=== PATIENT | male | born 1990 | race Two or more races ===

== ENCOUNTER 2021-10-12 18:03 | Emergency (ER) | payer OTHER, SELFPAY ==
--- NOTE | 2021-10-12 18:10 | ED.URI ---
HPI - URI/Sore Throat General Chief Complaint: Upper Respiratory Infection Stated Complaint: sob and can't get enough air Time Seen by Provider: 10/12/21 18:20 Source: patient and RN notes reviewed Mode of arrival: ambulatory Limitations: no limitations History of Present Illness HPI Narrative: 31-year-old male presents with concern for not getting enough oxygen . Report since yesterday he has had feelings of shortness of breath with lightheadedness. He denies cough, nasal congestion, sore throat, headache, body aches, chills, fever. Reports chronic rhinorrhea. Reports he took one dose of Benadryl with no relief. Reports symptoms are worse at work, eases when he rests. 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 Reports he was tested for Covid today and was negative. Denies any history of asthma, breathing problems. Reports he vapes. Denies vaping exacerbates his symptoms. Related Data Home Medications Medication Instructions Recorded Confirmed No Home Medications 10/12/21 10/12/21 Allergies Allergy/AdvReac Type Severity Reaction Status Date / Time mold Allergy Mild Sneezing Verified 10/12/21 18:21 pollen extracts Allergy Mild Sneezing Verified 10/12/21 18:21 Review of Systems Review of Systems: CONSTITUTIONAL: Denies malaise, chills, sweats, or fever. EYES: Denies visual changes, redness, or discharge. ENT: Reports rhinorrhea denies congestion, sinus pain, otalgia and sore throat. CARDIOVASCULAR: Denies chest pain, palpitations, or edema. RESPIRATORY: Denies cough. Reports dyspnea. GASTROINTESTINAL: Denies abdominal pain, nausea, vomiting, diarrhea SKIN: Denies rash or itching. MUSCULOSKELETAL: Denies myalgia. NEUROLOGIC: Denies headache. All systems reviewed & are unremarkable except as noted in HPI and below PMFSH Comments At time of signature, agree with nursing past medical, surgical, social and family history. There is no relevant family history pertinent to the presenting complaint Exam Narrative: GENERAL: Well-appearing, well-nourished, and in no acute distress. HEAD: Normocephalic, atraumatic. EYES: PERRLA, sclera clear, and EOMI. No nystagmus. ENT: Nares clear, postnasal drainage. Mucous membranes moist. TM pearly zamarripa with sharp light reflex bilaterally; no tragal tenderness. Oropharynx without erythema or lesions. Tonsils not enlarged and without exudate. NECK: Supple. No lymphadenopathy. No jugular venous distension, thyromegaly, or carotid bruits. Carotids were easily palpable bilaterally. CHEST: No respiratory distress. Clear to auscultation. No bony deformities, no asymmetry. Speaks in full sentences. HEART: Regular rate and rhythm. No murmur heard. Normal peripheral pulses. No cyanosis SKIN: Warm, dry, no visible rash. NEURO: Alert and oriented x3. PSYCH: Normal mood and flat affect Course Course Emergency Course: Patient is aware of diagnosis, understands and agrees to treatment plan. Anticipatory guidance given. Patient agrees to follow-up as directed and is aware of reasons to seek care at the emergency department. Portions of this record may have been created with voice recognition software Vital Signs Vital signs: Reviewed. MDM - URI/Sore Throat MDM Narrative Medical decision making narrative: Differential diagnosis considered: [place] virus, strep pharyngitis, allergic rhinitis, upper respiratory tract infection, sinusitis, rhinosinusitis, nasopharyngitis. viral pharyngitis, otitis media, otitis externa, pneumonia, bronchitis, viral cough syndrome, viral syndrome, and influenza. Exam findings show no acute concerns or changes; patient is non-toxic appearing and is in no distress. Patient is appropriate for outpatient treatment and follow-up. Critical Care Time Critical Care Time Critical Care Time: No Discharge Plan Discharge Clinical Impression: Physically well but worried Patient Disposition: Home, Self-Care Condition: Stable Instructions: General Patient Instructions Addit
[2021-10-12 18:11] VITALS: BP 134/86; PULSE 70; RESP 16; TEMP 36.4; O2SAT 100
== END 2021-10-12 18:35 | disposition home or self-care (01) ==
PROVIDERS: Emergency Provider Nurse Practitioner
DX: Z71.1 Person with feared health complaint in whom no diagnosis is made (principal)
CPT/HCPCS: 99211; G0463

== ENCOUNTER 2021-11-14 18:04 | Emergency (ER) | payer OTHER, SELFPAY ==
[2021-11-14 18:11] VITALS: BP 136/86; PULSE 84; RESP 16; TEMP 37.1; O2SAT 100
--- NOTE | 2021-11-14 19:01 | ED.URI ---
HPI - URI/Sore Throat General Chief Complaint: Upper Respiratory Infection Stated Complaint: Ear Pain/Sore Throat Source: patient and RN notes reviewed Limitations: no limitations History of Present Illness HPI Narrative: The vaccinated patient, who is a vaper/nondrinker, presents with 2-day history of scratchy sore throat and some anterior lymph node swelling and subjective fever 100.4. No earache, cough; no loss of taste/smell, CP, vomiting/diarrhea, S OB. Symptoms are mild worse eating Related Data Allergies Allergy/AdvReac Type Severity Reaction Status Date / Time mold Allergy Mild Sneezing Verified 11/14/21 18:17 pollen extracts Allergy Mild Sneezing Verified 11/14/21 18:17 Review of Systems Review of Systems: General/Constitutional: No weight loss,POSSIBLE fever Eyes: N0: Redness,discharge Ears/Nose/Throat: No: Epistaxis,ear discharge Respiratory: Denies: Hemoptysis Gastrointestinal: No Vomiting, Bleeding-rectal Skin: No Lumps, eruption Neurologic: No Focal Weakness,Sz Hematologic: Denies: Petechiae/Purpura Psychiatric: No: Suicida ideationl All Other Systems: Reviewed and Negative PMFSH Comments At time of signature, agree with nursing past medical, surgical, social and family history. There is no relevant family history pertinent to the presenting complaint Exam Narrative: General Appearance: Well appearing, Well nourished EYE: PERRLA, Conjunctiva clear Ears: Auditory canal normal, TM normal Nose: Rhinorrhea, Mucousal erythema Mouth/Throat: MM moist, Uvula midline, Pharyngeal erythema without exudate Neck: Supple,++ adenopathy Respiratory: No respiratory distress, Breath sounds equal, Clear to auscultation Cardiovascular: RRR, No JVD Musculoskeletal: Non tender, Normal strength Skin: Warm, Dry Neurological: A&O x3, CN II-XII intact Psychiatric: Normal mood, Normal affect Course Vital Signs Vital signs: Vital Signs Temperature 98.8 F 11/14/21 18:11 Pulse Rate 84 11/14/21 18:11 Respiratory Rate 16 11/14/21 18:11 Blood Pressure 136/86 11/14/21 18:11 Pulse Oximetry 100 11/14/21 18:11 Temperature 98.8 F 11/14/21 18:11 Pulse Rate 84 11/14/21 18:11 Respiratory Rate 16 11/14/21 18:11 Blood Pressure 136/86 11/14/21 18:11 Pulse Oximetry 100 11/14/21 18:11 MDM - URI/Sore Throat Lab Data Labs: Strep Screen Presumptive Negative *(Reference Range: Negative)* Discharge Plan Discharge Clinical Impression: Tonsil pain Patient Disposition: Home, Self-Care Condition: Stable Instructions: Antibiotic Form, Pharyngitis (ED) Prescriptions: New benzonatate 100 mg capsule 100 mg PO TID PRN (Reason: cough) Qty: 20 RF: 2 lidocaine HCl [Lidocaine Viscous] 2 % solution 5 ml MUCOUS MEM QID PRN (Reason: pain) Qty: 100 RF: 0 azithromycin 250 mg tablet See Rx Instructions .ROUTE .COMPLEX Qty: 6 RF: 0 azelastine 137 mcg (0.1 %) aerosol,spray 137 mcg NASAL Q12H Qty: 30 RF: 0 Other Ambulatory Orders: SARS-CoV-2 RNA, Qual RT-PCR (Routine) Location: Determined by Patient Ordered By: Nikita Walden Follow-up/Referrals: PHYSICIAN,SENIOR INTERNET SALES CONSULTANT [Primary Care Provider] - Stand Alone Forms: Work/School Release IP
== END 2021-11-14 19:10 | disposition home or self-care (01) ==
PROVIDERS: Emergency Provider Emergency Medicine
DX: R07.0 Pain in throat (principal); Z20.822 Contact with and (suspected) exposure to COVID-19
CPT/HCPCS: 87081; 87880; 99213; G0463